=== PATIENT | male | born 1965 | race Caucasian/White ===

== ENCOUNTER 2022-07-25 14:18 | Emergency (ER) | payer BC ==
[2022-07-25] MEDS ORDERED: DIPHTH,PERTUSS(ACELL),TET VAC 0.5 ML VIAL IM ONE (14:30)
[2022-07-25] MEDS ORDERED: ACETAMINOPHEN 500 MG TABLET (FP) PO ONE (14:31)
[2022-07-25] MEDS ORDERED: DIPHTH,PERTUSS(ACELL),TET 0.5 ML DISP.SYRIN IM ONE (14:33)
[2022-07-25] MEDS ORDERED: ACETAMINOPHEN 500 MG TABLET (FP) ONE (14:33)
[2022-07-25 14:35] VITALS: BP 151/96; PULSE 103; RESP 20; TEMP 98.1; BMI 41.0
== END 2022-07-25 16:09 | disposition home or self-care (01) ==
LOC: JERFT 14:18
PROC: 0HQKXZZ Repair Right Lower Leg Skin, External Approach (ICD-10-PCS; principal; 2022-07-25)
PROC: 3E0234Z Introduction of Serum, Toxoid and Vaccine into Muscle, Percutaneous Approach (ICD-10-PCS; 2022-07-25)
DX: S81.811A Laceration without foreign body, right lower leg, initial encounter (principal); W26.8XXA Contact with other sharp object(s), not elsewhere classified, initial encounter
CPT/HCPCS: 99283-25

== ENCOUNTER 2022-08-08 09:43 | Emergency (ER) | payer BC ==
[2022-08-08 10:11] VITALS: BP 159/93; PULSE 89; RESP 20; TEMP 98.2; BMI 41.0
== END 2022-08-08 10:20 | disposition home or self-care (01) ==
LOC: JERFT 09:43 → JER 09:43 → JERFT 10:20
DX: Z48.02 Encounter for removal of sutures (principal)
CPT/HCPCS: 99281-25